=== PATIENT | female | born 1960 | race African-American/Black ===

== ENCOUNTER 2018-03-19 15:30 | Emergency (ER) | payer MEDICAID ==
[~2018-03-19] VITALS: Ht 165.1 cm; Wt 79.0 kg
[~2018-03-19 15:30] MED LIST: MOTRIN
[2018-03-19 17:10] LABS: BASOPHILS % 0.9 % (0.0-2.0); EOSINOPHILS % 3.7 % (0.0-5.0); HEMATOCRIT. 37.2 % (36.0-48.0); HEMOGLOBIN. 12.3 g/dL (12.0-16.0); LYMPHOCYTES % 35.3 % (20.0-50.0); MEAN CORPUSCULAR HEMOGLOBIN 29.7 pg (28.0-32.0); MEAN PLATELET VOLUME 9.3 fl (7.4-10.4); MONOCYTES % 8.9 % (2.0-8.0); NEUTROPHILS % 51.2 % (40.0-76.0); PLATELET 169 x1000/uL (130-400); RED BLOOD CELL COUNT 4.13 mill/uL (4.2-5.4); RED CELL DISTRIBUTION WIDTH 15.1 % (11.6-14.6)
[2018-03-19 17:14] LABS: CHLORIDE 109 mEq/L (98-107)
[2018-03-19 20:24] VITALS: BP 173/90
[2018-03-19] MEDS ORDERED: CLONIDINE 0.1MG TABLET PO ONE (20:45)
== END 2018-03-19 20:57 | disposition home or self-care (01) ==
LOC: ER 18:37
DX: R07.89 Other chest pain (principal); I10 Essential (primary) hypertension; I44.0 Atrioventricular block, first degree; R00.1 Bradycardia, unspecified; F12.10 Cannabis abuse, uncomplicated; F17.200 Nicotine dependence, unspecified, uncomplicated
CPT/HCPCS: 36415; 71045; 80053; 83880; 84484; 85025; 85610; 93005; 99285